=== PATIENT | male | born 1980 | race Caucasian/White ===

== ENCOUNTER 2016-07-06 12:49 | Emergency (ER) | payer OTHER ==
--- NOTE | ~2016-07-06 | CR94 ---
[facility] A Service of [facility] & [facility] RADIOLOGY TEXT RESULTS PATIENT: NICKI NOBLE LOCATION: CFTX : 80 UNIT #: [id number] AGE: [address]: LEYLA PEREYRA SEX: M ORDER DR: [id number] [facility] [address] [place], [place] [address] [id number] MR#: [id number] Acc #: [id number] NAME: NICKI NOBLE. : 1980 SEX: M STUDY DATE/TIME: 07/06/2016 13:05 UNIT: [facility] ROOM: STUDY DESCRIPTION: CR Elbow Min 3 Views Rt Attending Physician: Leyla Pereyra A.P.R.N. Ordering Physician: Leyla Pereyra A.P.R.N. Primary Care Physician: No Primary Care Physician MEDICAL IMAGING REPORT This report is preliminary unless electronic signature is present EXAM Right elbow, 3 views. DATE OF STUDY 07/06/2016 CLINICAL HISTORY Pain and swelling after a fall 2 days ago. FINDINGS There is no joint effusion. There is no definite acute fracture. There are tiny ossicular densities adjacent to the medial epicondyle, which could possibly indicate a small acute avulsion injury but may also be sequela of a chronic injury. Please correlate for localized tenderness. Dictated by... Ildefonso Gutierrez M.D. THIS IS AN ELECTRONICALLY VERIFIED REPORT Ildefonso Gutierrez M.D. at 07/11/2016 9:47 AM TEV/lukas TD: 07/06/2016 14:11 JOB #: [id number] MEDICAL IMAGING REPORT Page 1 of 1 COPY
[~2016-07-06 12:49] MED LIST: LISINOPRIL PO; SKELAXIN PO
[2016-07-06 12:58] LABS: BASOPHIL% 0.3 % (0-2.5); DIFF IND NO; EOSINOPHIL# 0.1 X10e3 (0-0.7); EOSINOPHIL% 0.8 % (0.0-7.0); HEMATOCRIT 38.1 % (38.0-50.0); HEMOGLOBIN 12.8 gm/dL (13.0-16.0); LYMPHOCYTE# 1.9 X10e3 (1.0-3.5); LYMPHOCYTE% 16.8 % (17.0-45.0); MEAN CELL VOLUME 88.5 FL (83-96); MEAN CORPUSCULAR HEMOGLOBIN 29.9 PG (28-34); MEAN CORPUSCULAR HGB CONC 33.7 g/dL (30-36); MONOCYTE# 1.2 X10e3 (0-1.0); MONOCYTE% 11.1 % (3.0-12.0); PLATELET COUNT 168 X10e3 (140-420); RED CELL DISTRIBUTION WIDTH 13.6 % (11.0-15.5); WHITE BLOOD COUNT 11.2 X10e3 (4.0-10.5)
[2016-07-06 13:24] LABS: BUN/CREATININE RATIO 22.22; CALCIUM SERUM 9.1 mg/dL (8.4-10.2); CREATININE SERUM 0.9 mg/dL (0.6-1.4); GLOM FILT RATE Estimated 109.5 mL/min (>60); POTASSIUM 3.9 mmol/L (3.5-5.1)
== END 2016-07-06 15:37 | disposition home or self-care (01) ==
LOC: CFTX 12:49
PROVIDERS: Nurse Practitioner
DX: L03.113 Cellulitis of right upper limb (principal); I10 Essential (primary) hypertension; Z88.1 Allergy status to other antibiotic agents
CPT/HCPCS: 36415; 73080; 80048; 85025; 85652; 86140; 96361; 96365; 96375; 99284; J2270; J2405

== ENCOUNTER 2016-07-08 15:11 | Inpatient (IN) | payer OTHER ==
--- NOTE | ~2016-07-08 | CT128 ---
[facility] A Service of [facility] RADIOLOGY TEXT RESULTS PATIENT: NICKI NOBLE LOCATION: C2A : 80 UNIT #: [id number] AGE: [address]: Pat Beltran MD SEX: M ORDER DR: [id number] [address] [facility]. [place], [place] [address] [id number] I MR#: [id number] Acc #: [id number] NAME: NICKI NOBLE. : 1980 SEX: M STUDY DATE/TIME: 07/09/2016 16:32 UNIT: [facility] ROOM: 216 STUDY DESCRIPTION: CT Upper Ext Rt W Cont Attending Physician: Pat Beltran M.D. Ordering Physician: Pat Beltran M.D. Primary Care Physician: Primary Care Physician No MEDICAL IMAGING REPORT This report is preliminary unless electronic signature is present EXAM CT right upper extremity HISTORY 36-year-old male with right upper extremity cellulitis. Noted swelling and redness in elbow then over 5 days started going down into forearm and hand. Getting progressively worse. COMPARISON Right elbow films, 07/06/[address] exam was performed with one or more of the following radiation dose reduction techniques: automatic exposure control, adjustment of mA and/or kV according to patient size, and iterative reconstruction. FINDINGS Thin section axial images performed from the mid-upper arm to the wrist following IV contrast. Multiplanar reconstructed images reviewed at a workstation. Examination demonstrates confluent edema along the posterior aspect of the right upper extremity extending from the distal upper arm to the [id number] forearm. At the elbow there is a subtle area of hypodensity overlying the olecranon which could represent a small amount of olecranon bursal fluid but a distinct fluid collection or abscess is not identified. No peripherally enhancing fluid collections are seen. Small hypodense collection is seen in the antecubital fossa, measuring 3.2 x 1.9 cm and may represent some localized cellulitis as well. This does not appear to enhance postcontrast and could represent edema possibly from venipuncture. No defined hematoma. Musculature appears intact. The osseous structures appear normal. The visualized elbow and wrist joint unremarkable. IMPRESSION [facility] A Service of [facility] RADIOLOGY TEXT RESULTS PATIENT: NICKI NOBLE LOCATION: [facility] 216-01 : 80 UNIT #: [id number] AGE: [address]: Pat Beltran MD SEX: M ORDER DR: 1. Extensive skin thickening and subcutaneous edema along the dorsal surface of the upper arm, elbow and forearm compatible with cellulitis. Subtle hypodensity at the elbow overlying the olecranon could represent a small olecranon bursitis but no distinct drainable fluid collection or abscess is seen. 2. Hypodense density in the antecubital fossa which does not appear to enhance postcontrast and does not appear to be associated with skin thickening or edema. One would question whether this could represent focal edema from recent venipuncture. Localized infection in this region is considered less likely but not excluded. Clearly no drainable fluid collection or abscess is seen and no deep compartment osseous abnormality or joint abnormality identified. Dictated by... Bennett Solorio M.D. THIS IS AN ELECTRONICALLY VERIFIED REPORT Bennett Solorio M.D. at 07/11/2016 9:36 AM Leilani TD: 07/10/2016 08:49 JOB #: [id number] MEDICAL IMAGING REPORT Page 1 of 1 COPY
--- NOTE | ~2016-07-08 | HP ---
Unit #: [id number] #: [id number] Patient: NICKI NOBLE [id number] [address] [place], [place] [address] [id number] E MR#: [id number] NAME: NICKI NOBLE. ROOM: Age: 36 Sex: M Admission Date: 07/08/2016 : 1980 Attending Physician: Shivam Matta M.D. Primary Care Physician: No Primary Care Physician HISTORY AND PHYSICAL CHIEF COMPLAINT Right elbow swelling. HISTORY OF PRESENT ILLNESS The patient is a 36-year-old male with past medical history of hypertension, who presented to the emergency department for evaluation of the above. The patient states that he noticed that his elbow was red and swollen on July 05, 2016. He states that he wondered if he had been bitten by a bug. He denies any trauma. He was seen in the emergency department on July 06, 2016 and diagnosed with cellulitis. He was discharged home on clindamycin which he has been taking as prescribed. He states that the symptoms have worsened. He denies any fever. He presented to the emergency department for further evaluation. In the emergency department, initial temperature was 97.8, pulse 84. Laboratory is pending as is a venous Doppler. He is being admitted to [facility] for evaluation and further treatment. PAST MEDICAL HISTORY Hypertension. PAST SURGICAL HISTORY 1. Left shoulder surgery. 2. Right knee surgery. SOCIAL HISTORY The patient lives with his mother. He works as a cook. There is no tobacco or alcohol use. FAMILY HISTORY Notable for his mother having hypertension and diabetes. His dad had possibly protein C deficiency with history of multiple blood clots. ALLERGIES Will need to be reviewed and verified. HOME MEDICATIONS Not listed on the ER triage sheet. REVIEW OF SYSTEMS A complete review of systems is negative except as indicated in the HPI. Unit #: [id number] #: [id number] Patient: NICKI NOBLE PHYSICAL EXAMINATION GENERAL APPEARANCE: The patient is a male who is awake and alert, in no acute distress. VITAL SIGNS: Temperature 97.8. Pulse 84. Respirations 18. Blood pressure 140/88. HEENT: The head is atraumatic. Mucous membranes are moist. NECK: Supple. Trachea is midline. CARDIOVASCULAR: Regular rate and rhythm. LUNGS: Clear to auscultation bilaterally with no increased work of breathing. ABDOMEN: Soft, nontender with bowel sounds present in all four quadrants. EXTREMITIES: The right upper extremity in the region of the olecranon extending to involve the proximal forearm and distal arm demonstrates erythema, warmth and tenderness to palpation. He does have decreased range of motion secondary to pain. Sensation is intact. He does have a 2+ radial pulse. NEUROLOGIC: The patient is awake and alert. He follows commands. PSYCHIATRIC: Mood and affect are normal. The patient is cooperative. SKIN: Demonstrates the previously described abnormalities. DIAGNOSTIC STUDIES LABORATORY: Complete blood count from the notable for WBC count of 11.2, hemoglobin 12.8. CRP was 4.2. Basic metabolic panel, again, from July 06, was normal. IMAGING: Right elbow x-ray from July 06 shows no joint effusion. No acute fracture. Tiny ossicular density adjacent to the medial epicondyle. It could possibly indicate a small acute avulsion injury but may also be sequela of chronic injury. ASSESSMENT The patient is a 36-year-old male with: 1. Right upper extremity cellulitis that has failed outpatient treatment with clindamycin. The patient received vancomycin in the emergency department. 2. Hypertension. PLAN 1. Admit to med/surg. 2. Healthy Heart diet. 3. Blood cultures x2. 4. Vancomycin IV and Zosyn IV for cellulitis pending further workup. 5. Follow up results of right upper extremity venous Doppler. 6. Check labs including CBC and comprehensive metabolic panel. 7. PRN Tylenol. 8. PRN Zofran. 9. PRN Toradol. 10. Additional workup and consultants based on above. Dictated by Yaakov Mckenna/radha TD: 07/08/2016 15:53 JOB #: [id number] Unit #: [id number] #: [id number] Patient: AIDENICKI Nikolai HISTORY AND PHYSICAL Page 1 of 1 X Yamileth Ronquillo MD HISTORY AND PHYSICAL
--- NOTE | ~2016-07-08 | CO ---
Unit #: [id number] #: [id number] Patient: NICKI NOBLE [id number] [address] [place], [place] [address] [id number] I MR#: [id number] NAME: NICKI NOBLE ROOM: 216 Age: 36 Sex: M Admission Date: 07/08/2016 : 1980 Attending Physician: Pat Beltran M.D. Primary Care Physician: No Primary Care Physician Requesting Physician: Pat Beltran M.D. Consultation Date: 07/09/2016 CONSULTATION REPORT REASON FOR CONSULTATION Cellulitis and swelling of the right upper extremity. Thank you very much for asking us to see Mr. Noble. HISTORY OF PRESENT ILLNESS He is a 36-year-old white male, who, beginning on 07/05/16, developed pain and swelling as well as redness of his right elbow area. This has spread to involve his right forearm and hand. He was started on oral antibiotics initially but returned because of worsening symptoms. He was submitted for IV fluids and IV antibiotics. He had an ultrasound performed which revealed no DVT in the right upper extremity. His laboratory studies were overall fairly normal. He denies any use of IV injectable medications. He presents at this time for further evaluation and treatment. PAST MEDICAL HISTORY Hypertension. PAST SURGICAL HISTORY Left shoulder surgery, right knee surgery. SOCIAL HISTORY No tobacco or alcohol use. FAMILY HISTORY Hypertension, diabetes. ALLERGIES No known medical allergies. MEDICATIONS Please medication reconciliation sheet. REVIEW OF SYSTEMS Negative except for above. IMMUNIZATION STATUS Unknown. PHYSICAL EXAMINATION GENERAL APPEARANCE: A well-developed, well-nourished white male, no apparent distress, awake, alert and oriented. VITAL SIGNS: Temperature 98.9. Pulse 84. Respiration 16. Blood pressure 150/70. Unit #: [id number] #: [id number] Patient: NICKI NOBLE BACK: No CVA or spinous tenderness. ABDOMEN: Soft, nontender. EXTREMITIES: Examination of his right upper extremity reveals some redness and erythema of his right elbow but no purulent drainage. He has swelling of his right forearm and hand, although from where it was previously marked, the cellulitis appears to be receding. He has a strong right radial pulse. The patient has good data analytics analyst strength and his sensation appears to be grossly intact. IMPRESSION A 36-year-old white male with cellulitis, swelling that has been having some improvement of the right hand, forearm, and elbow region. We have explained to the patient that we agree with IV fluids and IV antibiotics. We also agree with the need for a CT scan for further evaluation. We will await the results. Thank you so much for this consultation. We appreciate it. Dictated by... Yaakov Palacios/radha TD: 07/10/2016 07:07 JOB #: [id number] CONSULTATION REPORT Page 1 of 1 X Gerard Pittman MD X CONSULTATION REPORT
--- NOTE | ~2016-07-08 | US140 ---
[facility] A Service of [facility] RADIOLOGY TEXT RESULTS PATIENT: NICKI NOBLE LOCATION: A : 80 UNIT #: [id number] AGE: [address]: Pat Beltran MD SEX: M ORDER DR: [id number] [facility] [address] [place], [place] [address] [id number] I MR#: [id number] #: [id number] NAME: NICKI NOBLE. : 1980 SEX: M STUDY DATE/TIME: 07/08/2016 16:10 UNIT: [facility] ROOM: [facility] STUDY DESCRIPTION: US UE Veins Unilat or Ltd Stdy Attending Physician: Yamileth Ronquillo M.D. Ordering Physician: Shivam Matta M.D. Primary Care Physician: Primary Care Physician No MEDICAL IMAGING REPORT This report is preliminary unless electronic signature is present EXAM Right upper extremity venous Doppler HISTORY Right elbow pain for 3-4 days, pain starting in elbow radiating to rest of arm, swelling. FINDINGS 2-D and Doppler evaluation of the right upper extremity demonstrates normal flow and compressibility of the deep and superficial veins of the right upper extremity. No intraluminal thrombus identified. Normal respiratory variation. IMPRESSION No sonographic evidence of DVT or SVT within the right upper extremity. Dictated by... Bennett Solorio M.D. THIS IS AN ELECTRONICALLY VERIFIED REPORT Bennett Solorio M.D. at 07/09/2016 1:06 PM HILLARY/cindy TD: 07/08/2016 18:46 JOB #: [id number] MEDICAL IMAGING REPORT Page 1 of 1 COPY
--- NOTE | ~2016-07-08 | HP ---
Unit #: [id number] #: [id number] Patient: NICKI NOBLE [id number] [address] [address] [id number] I MR#: [id number] NAME: NICKI NOBLE ROOM: [address] Age: 36 Sex: M Admission Date: 07/08/2016 : 1980 Attending Physician: Yamileth Ronquillo M.D. Primary Care Physician: No Primary Care Physician HISTORY AND PHYSICAL ADDENDUM ALLERGIES Cefaclor. HOME MEDICATIONS 1. Ibuprofen. 2. Clindamycin. 3. Methadone. Dictated by Yaakov Mckenna/radha TD: 07/08/2016 16:34 JOB #: [id number] HISTORY AND PHYSICAL Page 1 of 1 X Yamileth Ronquillo MD HISTORY AND PHYSICAL
--- NOTE | ~2016-07-08 | CO ---
Unit #: [id number] #: [id number] Patient: NICKI NOBLE [id number] [facility] [address] [place], [place] [address] [id number] I MR#: [id number] NAME: NICKI NOBLE ROOM: 216 Age: 36 Sex: M Admission Date: 07/08/2016 : 1980 Attending Physician: Pat Beltran M.D. Consultation Date: 07/10/2016 CONSULTATION REPORT REASON FOR CONSULTATION Right elbow pain. HISTORY OF PRESENT ILLNESS Mr. Noble is a 36-year-old male, who presents today with a history of right elbow pain and swelling and redness, has been going on since Saturday. He was treated with oral antibiotics. This did not seem to alleviate his symptoms or pain. He continued to have swelling and decreased range of motion. He was admitted at [facility] for further evaluation and IV antibiotics. He denies any injury that he can recall. No reported IV drug use. 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 The patient denies any fevers or chills. The patient reports improved symptoms. He has reported improved range of motion as well as redness. PAST MEDICAL HISTORY Significant for hypertension. MEDICATIONS Include ibuprofen, clindamycin, and methadone. ALLERGIES To cefaclor. SURGICAL HISTORY Significant for left shoulder surgery and right knee surgery. SOCIAL HISTORY The patient lives at home with his mom. He denies any smoking, alcohol, or drug use. FAMILY HISTORY Insignificant. REVIEW OF SYSTEMS Ten organ systems reviewed. The patient denies any blurry vision, congestion, sore throat, shortness of breath, chest pain, abdominal pain, urinary incontinence, numbness, tingling, skin ulcers, lesions, anxiety, depression. Positive for joint pain. PHYSICAL EXAMINATION GENERAL: No acute distress. Alert and oriented x3. VITAL SIGNS: Temperature 98.3, pulse 74, respirations 16, blood pressure Unit #: [id number] #: [id number] Patient: NICKI NOBLE 163/88. HEENT: PERRLA. Nonicteric sclerae. THORAX: Trachea midline. No thyromegaly. CARDIAC: S1, S2. No extra sounds or murmurs. LUNGS: Clear to auscultation. No rales or rhonchi. ABDOMEN: Nondistended and nontender. Positive bowel sounds. : Deferred. MUSCULOSKELETAL: Mild erythema at the olecranon bursa. Full range of motion, flexion, and extension of the right elbow. Positive edema from the elbow to the hand. A tununak was documented upon the patient's arrival where his redness started. This is much improved today. NEUROLOGIC: II through XII intact. SKIN: Cool and dry. PSYCHIATRIC: Good insight and good judgment. Mood and affect are pleasant. DIAGNOSTIC STUDIES LABORATORY RESULTS: On admission, CRP are 9.0, sedimentation rate 63. Blood cultures from 07/09/2016 negative. White count is 9.5, hemoglobin 12.4, hematocrit 36.4, platelets 229. Sodium 135, potassium 4, chloride 99, bicarb 29, BUN 11, creatinine 0.9, glucose 86. IMAGING STUDIES: Right elbow x-rays were ordered from 07/06/2016 and showed no joint effusion, no fractures, possible avulsion injury of the medial epicondyle. Venous Doppler ultrasound of the right upper extremity was also reviewed from 07/08/2016 and shows no evidence of DVT. A CT scan of the right upper extremity was ordered and reviewed from 07/09/2016 showing; 1. Skin thickening and subcu edema compatible with cellulitis. Small olecranon bursitis, but no drainable fluid or abscess seen. 2. Hypodensity at the antecubital fossa suggestive of venipuncture, but no drainable fluid or abscess seen at the olecranon. ASSESSMENT Right upper extremity cellulitis. PLAN I have discussed the treatment options with the patient and the patient's family, who is at the bedside. Because he has had improvement and there is no drainable fluid noted on the CT scan, I have recommended holding off on any aspirations or surgical intervention at this time. I have marked him once again today 07/10/2016 along the area of redness at the olecranon bursa. If there is no improvement tomorrow, I will consider aspiration of the olecranon bursa. We will continue to monitor the patient's progress. I recommend continuing his IV antibiotics at this time. Dictated by... Eliana Reynolds P.A.C. for Santi Ortiz M.D. ROMAN/rome TD: 07/11/2016 01:55 JOB #: [id number] Unit #: [id number] #: [id number] Patient: NICKI NOBLE CONSULTATION REPORT Page 1 of 1 X Eliana Reynolds CONSULTATION REPORT
--- NOTE | ~2016-07-08 | DS ---
Unit #: [id number] #: [id number] Patient: NICKI NOBLE [id number] [address] [place], [place] [address] [id number] MR#: [id number] NAME: NICKI NOBLE. ROOM: 216 Age: 36 Sex: M Admission Date: 07/08/2016 : 1980 Discharge Date: 07/11/2016 Attending Physician: Pat Beltran M.D. Primary Care Physician: No Primary Care Physician DISCHARGE SUMMARY DISCHARGE DIAGNOSES 1. Right hand cellulitis. No abscess. No surgical intervention needed per general surgery. 2. Right olecranon bursitis. No surgery per orthopedic surgery. Will follow up within one week to reassess the wound. 3. Elevated liver enzymes without any abdominal pain. Hepatitis panel has been ordered and the patient is to follow up on this with his primary care physician. 4. Drug abuse and drug screen was positive for amphetamines as well as methadone. Methadone was expected as the patient does go to the methadone clinic, but no indication as to why amphetamine would be positive. 5. Narcotic/methadone dependent. PROCEDURES PERFORMED None. CONSULTANTS [facility]. Dr. Ortiz of orthopedic surgery. DIAGNOSTIC DATA IMAGING: X-ray of the elbow on 07/06/2016 with findings of no joint effusion. There is no definite acute fracture. There are tiny ossicular densities adjacent to the medial epicondyle which could possibly indicate a small acute avulsion injury, but may also be sequelae of chronic injury. Please correlate for localized tenderness. Ultrasound of the right upper extremity on 07/08/2016 with impression of no sonographic evidence of DVT or SVT within the right upper extremity. CT of the right upper extremity on 07/09/2016 with impression of extensive skin thickening and subcutaneous edema long the dorsal surface of the upper arm, elbow and forearm, compatible with cellulitis. Septal hypodensity in the elbow overlying the olecranon could represent a small olecranon bursitis, but no distinct drainable fluid collection or abscess is seen. Hypodensity in the antecubital fossa which does not appear to enhance. Post contrast it does not appear to be associated with skin thickening or edema. Localized infection in this region is considered less likely, but not excluded. Clearly, no drainable fluid collection or abscess is seen and no deep compartment osseous abnormality identified. LABORATORY: On the day of discharge, BMP with glucose of 91, BUN 10, creatinine 0.8, sodium 137, potassium 3.8, chloride 102, CO2 30, calcium Unit #: [id number] #: [id number] Patient: NICKI NOBLE D 8.9, magnesium 1.9. CBC with white blood cell count of 8.9, RBC 4.14, hemoglobin 12.3, hematocrit 36.7, MCV 88.7, MCH 29.9, MCHC 38.7, RDW 13.9, platelets 259, MPV 7.3. HOSPITAL COURSE The patient is a 36-year-old male with a past medical history of essential hypertension, left shoulder surgery, right knee surgery, who presented to the emergency department due to right elbow swelling. The patient stated that he noticed redness and swelling in the elbow since 07/05/2016. He said that he wondered if he had been bitten by a bug. He denies any trauma. To date he still denies any trauma. He was seen in the emergency department on 07/06/2016 and diagnosed with cellulitis and was discharged home on clindamycin, which he states that he has been taking as prescribed. He stated that the redness and swelling had worsened. He denied fever. Therefore, he presented back to the emergency department for further evaluation. In the emergency department vitals were stable. Venous Doppler was ordered and was still pending and was negative for right forearm and elbow cellulitis that had failed outpatient antibiotic with clindamycin. He was transiently treated with vancomycin as well as Zosyn. General surgery was asked to see the patient in consultation. We did perform a urine drug screen that was positive for methadone, as was expected as the patient is active at the methadone clinic. It was also positive for amphetamine. The patient specifically told me that he has not been taking anything over the counter. No cold remedies or anything else. I do not see any reason why this would be positive for amphetamines for any medicine that is prescribed to him for his home management. The patient adamantly denies any illicit drug usage. General surgery felt that there was no drainable abscess in his forearm. Therefore, they did not elect to perform any surgery. With much redness in the elbow CT of the upper extremity was done, which stated there was no drainable abscess or deep compartment osseous abnormality or joint abnormality identified, but it did see a possible small olecranon bursitis, but no distinct drainable fluid collection or abscess was seen within this. Orthopedic surgery with Dr. Ortiz was consulted, who thought the patient was responding to the antibiotic and, therefore, opted to have no surgical intervention at this time. Did draw blood culture, which is negative. At the time of my evaluation the redness of the patient's elbow and forearm, which was previously marked, has reduced to below the initial hanna that was drawn. There is no redness or swelling left in the hand or forearm. There is a small amount of palpable fluid in the olecranon process, but there is minimal redness. The patient states that there is no more pain with this. Therefore, the patient is stable to be discharged home. He will follow up with his primary care physician within one to two weeks and follow up with Dr. Ortiz in their clinic in one week to reassess the wound. I will be giving the patient a note to return to work in a week. Further time off can be evaluated by Dr. Ortiz. DISCHARGE CONDITION Stable. DISPOSITION Home. DIET Resume regular diet as was prior to hospitalization. ACTIVITY It has been stressed to the patient to not bear weight on the right arm, Unit #: [id number] #: [id number] Patient: NICKI NOBLE but to continue use of the arm with full range of motion. DISCHARGE MEDICATIONS 1. Methadone 100 mg p.o. daily as confirmed by the methadone clinic. 2. Tylenol/ibuprofen as needed for additional pain. 3. Doxycycline 100 mg p.o. b.i.d. for the next 5 days. Dictated by... John Conroy PA-C for Yaakov Luke/valery TD: 07/11/2016 09:47 JOB #: [id number] DISCHARGE SUMMARY Page 1 of 1 X X DISCHARGE SUMMARY
[2016-07-08 15:37] LABS: BASOPHIL% 0.1 % (0-2.5); EOSINOPHIL# 0.2 X10e3 (0-0.7); EOSINOPHIL% 1.7 % (0.0-7.0); HEMATOCRIT 35.2 % (38.0-50.0); HEMOGLOBIN 11.9 gm/dL (13.0-16.0); LYMPHOCYTE# 1.3 X10e3 (1.0-3.5); LYMPHOCYTE% 12.7 % (17.0-45.0); MEAN CELL VOLUME 88.9 FL (83-96); MEAN CORPUSCULAR HGB CONC 33.8 g/dL (30-36); MEAN PLATELET VOLUME 7.8 FL (6.5-11.5); MONOCYTE# 1.1 X10e3 (0-1.0); MONOCYTE% 10.5 % (3.0-12.0); NEUTROPHIL# 7.9 X10e3 (1.5-7.1); PLATELET COUNT 166 X10e3 (140-420); RED BLOOD COUNT 3.96 X10e (3.90-5.60); RED CELL DISTRIBUTION WIDTH 13.5 % (11.0-15.5); WHITE BLOOD COUNT 10.5 X10e3 (4.0-10.5)
[2016-07-08 15:39] LABS: DIFF IND NO
[2016-07-08 16:01] LABS: ALBUMIN SERUM 3.5 g/dL (3.5-5.0); BILIRUBIN, DIRECT 0.1 mg/dL (0.0-0.2); BILIRUBIN,INDIRECT 0.5 mg/dL (0.0-0.9); BILIRUBIN,TOTAL 0.6 mg/dL (0.2-2.0); CALCIUM SERUM 8.7 mg/dL (8.4-10.2); CREATININE SERUM 0.8 mg/dL (0.6-1.4); POTASSIUM 4.2 mmol/L (3.5-5.1); PROTEIN TOTAL SERUM 7.1 g/dL (6.0-8.3)
[2016-07-08] MEDS ORDERED: METHADONE PO (18:25)
[2016-07-09 02:50] LABS: AMPHETAMINE POS (NEG); BARBITURATES NEG (NEG); BENZODIAZEPINES NEG (NEG); COCAINE NEG (NEG); MARIJUANA NEG (NEG); OPIATES NEG (NEG); TRICYCLIC ANTIDEPRESSANTS NEG (NEG); U METHADONE POS (NEG)
[2016-07-09 06:02] LABS: BASOPHIL% 0.3 % (0-2.5); EOSINOPHIL# 0.2 X10e3 (0-0.7); EOSINOPHIL% 1.7 % (0.0-7.0); HEMATOCRIT 34.9 % (38.0-50.0); HEMOGLOBIN 11.8 gm/dL (13.0-16.0); LYMPHOCYTE# 1.7 X10e3 (1.0-3.5); LYMPHOCYTE% 16.9 % (17.0-45.0); MEAN CELL VOLUME 88.9 FL (83-96); MEAN CORPUSCULAR HGB CONC 33.7 g/dL (30-36); MEAN PLATELET VOLUME 7.8 FL (6.5-11.5); NEUTROPHIL% 71.1 % (40-75); PLATELET COUNT 186 X10e3 (140-420); RED BLOOD COUNT 3.92 X10e (3.90-5.60); RED CELL DISTRIBUTION WIDTH 13.3 % (11.0-15.5); WHITE BLOOD COUNT 9.8 X10e3 (4.0-10.5)
[2016-07-09 06:09] LABS: DIFF IND NO
[2016-07-09 06:27] LABS: ALBUMIN SERUM 3.3 g/dL (3.5-5.0); BUN/CREATININE RATIO 8.88; CREATININE SERUM 0.9 mg/dL (0.6-1.4); GLOM FILT RATE Estimated 109.5 mL/min (>60); POTASSIUM 4.2 mmol/L (3.5-5.1); PROTEIN TOTAL SERUM 6.9 g/dL (6.0-8.3)
[2016-07-10 04:51] LABS: HEMATOCRIT 36.4 % (38.0-50.0); HEMOGLOBIN 12.4 gm/dL (13.0-16.0); MEAN CORPUSCULAR HGB CONC 34.1 g/dL (30-36); MEAN PLATELET VOLUME 7.3 FL (6.5-11.5); RED BLOOD COUNT 4.13 X10e (3.90-5.60); RED CELL DISTRIBUTION WIDTH 13.3 % (11.0-15.5); WHITE BLOOD COUNT 9.5 X10e3 (4.0-10.5)
[2016-07-10 05:16] LABS: ALBUMIN SERUM 3.1 g/dL (3.5-5.0); BILIRUBIN,TOTAL 0.5 mg/dL (0.2-2.0); CALCIUM SERUM 9.1 mg/dL (8.4-10.2); CREATININE SERUM 0.8 mg/dL (0.6-1.4); MAGNESIUM 1.9 mg/dL (1.6-3.0); POTASSIUM 4.2 mmol/L (3.5-5.1); PROTEIN TOTAL SERUM 6.9 g/dL (6.0-8.3)
[2016-07-10 08:50] LABS: BUN/CREATININE RATIO 12.22; CALCIUM SERUM 8.8 mg/dL (8.4-10.2); CREATININE SERUM 0.9 mg/dL (0.6-1.4); GLOM FILT RATE Estimated 109.5 mL/min (>60)
[2016-07-11 04:33] LABS: HEMATOCRIT 36.7 % (38.0-50.0); HEMOGLOBIN 12.3 gm/dL (13.0-16.0); MEAN CELL VOLUME 88.7 FL (83-96); MEAN CORPUSCULAR HEMOGLOBIN 29.9 PG (28-34); MEAN CORPUSCULAR HGB CONC 33.7 g/dL (30-36); MEAN PLATELET VOLUME 7.3 FL (6.5-11.5); RED BLOOD COUNT 4.14 X10e (3.90-5.60); RED CELL DISTRIBUTION WIDTH 13.1 % (11.0-15.5); WHITE BLOOD COUNT 8.9 X10e3 (4.0-10.5)
[2016-07-11 04:54] LABS: BUN/CREATININE RATIO 12.5; CALCIUM SERUM 8.9 mg/dL (8.4-10.2); CREATININE SERUM 0.8 mg/dL (0.6-1.4); MAGNESIUM 1.9 mg/dL (1.6-3.0); POTASSIUM 3.8 mmol/L (3.5-5.1)
[2016-07-11] MEDS ORDERED: DOXYCYCLINE HY100 M4 PO (09:39)
[2016-07-14 10:35] LABS: HA AB IGM (HEPPAN) Nonreactive (()); HB CORE AB IGM (HEPPAN) Nonreactive (Nonreactive); HB S AG (HEPPAN) Nonreactive (Nonreactive); HEP C AB (HEPPAN) Reactive (Nonreactive)
== END 2016-07-11 11:12 | disposition home or self-care (01) | DRG 603 ==
LOC: CED 15:11 → CEDOF 15:45 → C2A 18:10
PROVIDERS: Emergency Medicine; Family Medicine; Physician Assistant Medical
DX: L03.113 Cellulitis of right upper limb (principal); F11.20 Opioid dependence, uncomplicated; I10 Essential (primary) hypertension; M70.21 Olecranon bursitis, right elbow; F15.10 Other stimulant abuse, uncomplicated
CPT/HCPCS: 36415; 73201; 80048; 80053; 80074; 80076; 80202; 80307; 83036; 83735; 84443; 85025; 85027; 85652; 86140; 87040; 87522; 93971; 96365; 99285; J2543; J3370; Q9967